=== PATIENT | male | born 1990 | race Two or more races ===

== ENCOUNTER 2020-09-20 16:43 | Emergency (ER) | payer SELFPAY ==
[~2020-09-20] VITALS: Ht 172.7 cm; Wt 80.0 kg
[2020-09-20] MEDS ORDERED: IV NORMAL SALINE 1000ML BAG 1,000 ML IV ONE (17:30)
[2020-09-20] MEDS ORDERED: diphenhydrAMINE 50 MG/ML VIAL IVP ONE (17:30)
[2020-09-20] MEDS ORDERED: METOCLOPRAMIDE 10 MG TABLET. PO ONE (17:30)
--- NOTE | 2020-09-20 17:30 | PHYS DOC ---
Past Medical History Past Medical History: No Pertinent History (BOLA KOCH MD) Past Surgical History: No Surgical History (BOLA KOCH MD) Smoking Status: Never Smoker Alcohol Use: Rarely Drug Use: Marijuana (BOLA KOCH MD) General Adult EDM: Chief Complaint: EYE PROBLEMS HPI: HPI: This is a pleasant 30-year-old male who is Turkmen-speaking only. Blue phone bottle washer machine utilized to communicate. He describes 2 days worth of intermittent headache that goes off and on and is worse with lights. Improved with ibuprofen and Tylenol. Currently he describes having 0 pain. He just comes in to get checked out. The pain mostly is in the left eye and temporal region. He denies any vision changes. Review of systems negative for chest pain shortness of breath abdominal pain vomiting diaphoresis recent trauma nuchal rigidity or any rashes. All other review of systems negative. (BOLA KOCH MD) Heart Score: C/O Chest Pain: No Risk Factors: Risk Factors: DM, Current or recent (<one month) smoker, HTN, HLP, family history of CAD, obesity. Risk Scores: Score 0 - 3: 2.5% MACE over next 6 weeks - Discharge Home Score 4 - 6: 20.3% MACE over next 6 weeks - Admit for Clinical Observation Score 7 - 10: 72.7% MACE over next 6 weeks - Early Invasive Strategies (BOLA KOCH MD) C/O Chest Pain: No (ADRIANNA SINGH APRN) Physical Exam: PE: Constitutional: Well developed, well nourished, no acute distress, non-toxic appearance. [] HENT: Normocephalic, atraumatic, bilateral external ears normal, oropharynx moist, no oral exudates, nose normal. [] Eyes: PERRLA, EOMI, conjunctiva normal, no discharge. [] Neck: Normal range of motion, no tenderness, supple, no stridor. [] Cardiovascular:Heart rate regular rhythm, no murmur [] Lungs & Thorax: Bilateral breath sounds clear to auscultation [] Abdomen: Bowel sounds normal, soft, no tenderness, no masses, no pulsatile masses. [] Skin: Warm, dry, no erythema, no rash. [] Back: No tenderness, no CVA tenderness. [] Extremities: No tenderness, no cyanosis, no clubbing, ROM intact, no edema. [] Neurologic: Mental status: Awake oriented and alert x3 Cranial nerves: Extraocular movements intact, eyebrows lesley bilaterally, smile symmetric, uvula elevation nl, shoulder shrug intact bilaterally, tongue protrusion normal Clear speech. Sensation: equal and normal in all extremities Strength: 5/5 in upper and lower extremities bilaterally Psychologic: Affect normal, judgement normal, mood normal. [] (BOLA KOCH MD) EKG: EKG: [] (BOLA KOCH MD) Radiology/Procedures: Radiology/Procedures: [] (BOLA KOCH MD) Course & Med Decision Making: Course & Med Decision Making Pertinent Labs and Imaging studies reviewed. (See chart for details) [] (BOLA KOCH MD) Course & Med Decision Making 175- Report from will follow up on patient labs and d/c home with headache instructions if normal. Lab results reviewed, unremarkable. (ADRIANNA SINGH APRN) Dragon Disclaimer: Dragon Disclaimer: This electronic medical record was generated, in whole or in part, using a voice recognition dictation system. (BOLA KOCH MD) Departure Departure Impression: Primary Impression: Headache Qualified Codes: R51.9 - Headache, unspecified Disposition: HOME / SELF CARE / HOMELESS Condition: STABLE Patient Instructions: General Headache Without Cause, [id number] Additional Instructions: You take Tylenol and ibuprofen as needed for pain. Go home and rest in a cool, dark, quiet room. Limit screen exposure. Follow-up with your primary care doctor in the next 1 to 2 days, return to the ER if symptoms worsen or fever develops. [facility] [address] [place] [address] [facility] [address] [place] [address] [facility] [address] [facility] [place] [address] [facility] [address] [place] [address] [facility] [address] [place] [address] [facility] [address] [place] [address] [facility] [address] [place] [address] [facility] [address] [place] [address] [facility] [address] [place] [address] [facility] [address] [place] [address] BOLA KOCH MD Sep 20, 2020 17:30 ADRIANNA SINGH APRN Sep 20, 2020 18:01
--- NOTE | 2020-09-20 17:53 | RAD ---
CT HEAD INDICATION: Reason: left sided headache / Spl. Instructions: / History: COMPARISON: None Available. Exposure: One or more of the following individualized dose reduction techniques were utilized for thi s examination: 1. Automated exposure control 2. Adjustment of the mA and/or kV according to patient size 3. Use of iterative reconstruction technique TECHNIQUE: 5 mm contiguous axial images were obtained from the skull base to the vertex in both bone and soft tissue algorithm. FINDINGS: No abnormal attenuation within the brain parenchyma. No evidence of acute intracranial hemorrhage. No extra-axial fluid collections. No mass effect or midline shift. Ventricular size is appropriate. Basal cisterns are patent. No fractures identified.Bass-white differentiation is preserved.Globes and orbits are within normal l imits. Paranasal sinuses and mastoid air cells are clear. IMPRESSION: No acute intracranial findings. Electronically signed by: Santos Schofield MD (09/20/2020 5:51 PM) [id number]
[2020-09-20 18:00] LABS: CALCIUM 9.1 mg/dL (8.5-10.1); GFR 86.6; POTASSIUM 4.1 mmol/L (3.5-5.1)
[2020-09-20 18:06] LABS: ALBUMIN 4.5 g/dL (3.4-5.0); ALBUMIN/GLOBULIN RATIO 1.8 (1.0-1.7); TOTAL BILIRUBIN 0.4 mg/dL (0.2-1.0)
[2020-09-20 18:13] LABS: BASO % 1 % (0-3); EOS # 0.2 x10^3/uL (0.0-0.7); EOS % 2 % (0-3); HEMATOCRIT 45.5 % (39.0-53.0); HEMOGLOBIN 16.4 g/dL (13.0-17.5); LYMPH # 1.9 x10^3/uL (1.0-4.8); LYMPH % 27 % (24-48); MEAN CORPUSCULAR HEMOGLOBIN 32 pg (25-35); MEAN CORPUSCULAR HGB CONC 36 g/dL (31-37); MEAN CORPUSCULAR VOLUME 89 fL (79-100); MONO # 0.5 x10^3/uL (0.0-1.1); MONO % 8 % (0-9); NEUT # 4.4 x10^3/uL (1.8-7.7); NEUT % 63 % (31-73); PLATELET COUNT 177 x10^3/uL (140-400); RED BLOOD COUNT 5.12 x10^6/uL (4.30-5.70); RED CELL DISTRIBUTION WIDTH 12.8 % (11.5-14.5); WHITE BLOOD COUNT 7.1 x10^3/uL (4.0-11.0)
[2020-09-20 18:50] VITALS: BP 139/86
== END 2020-09-20 18:55 | disposition home or self-care (01) ==
LOC: ER 16:43
DX: R51.9 Headache, unspecified (principal); H57.12 Ocular pain, left eye
CPT/HCPCS: 36415; 70450; 80053; 85025; 96360; 99284; J7030